=== PATIENT | male | born 1995 | race Two or more races ===

== ENCOUNTER 2024-04-19 21:04 | Emergency (ER) | payer MEDICARE ==
[~2024-04-19] VITALS: Ht 180.3 cm; Wt 66.2 kg
[2024-04-19] MEDS ORDERED: levETIRAcetam 500 MG/5 ML VIAL IV ONE (21:35)
[2024-04-19] MEDS: levETIRAcetam IV 500 MG in IV DEXTROSE 5% 100 ML IV ONE (21:40)
[2024-04-19 21:42] LABS: BASOPHILS % (AUTO) 0.4 % (0.0-2.0); HEMATOCRIT 41.8 % (36.7-47.1); HEMOGLOBIN 14.2 g/dL (12.5-16.3); LYMPHOCYTES # (AUTO) 2.4 K/uL (0.8-4.8); LYMPHOCYTES % (AUTO) 32.3 % (20.5-51.5); MEAN CORPUSCULAR HEMOGLOBIN 29.8 uug (23.8-33.4); MEAN CORPUSCULAR HGB CONC 34 g/dL (32.5-36.3); MEAN CORPUSCULAR VOLUME 87.5 fL (73.0-96.2); MONOCYTES # (AUTO) 0.5 K/uL (0.1-1.30); MONOCYTES % (AUTO) 6.3 % (0.0-11.0); NEUTROPHILS # (AUTO) 4.6 K/uL (1.8-8.9); PLATELET COUNT (AUTO) 214 K/uL (152-348); RED BLOOD CELL COUNT(AUTO) 4.78 MIL/uL (4.06-5.63); RED CELL DISTRIBUTION WIDTH 13.8 % (12.1-16.2); WHITE BLOOD COUNT (AUTO) 7.5 K/uL (3.6-10.2)
[2024-04-19 21:46] LABS: DIFFERENTIAL COMMENT 1
[2024-04-19 21:57] LABS: ETHANOL < 3 MG/DL (0-10)
[2024-04-19 21:58] LABS: ALANINE AMINOTRANSFERASE 20 U/L (16-63); ALBUMIN 4.1 g/dL (3.4-5.0); ALKALINE PHOSPHATASE 83 U/L (50-136); ASPARTATE AMINOTRANSFERASE 16 U/L (15-37); BILIRUBIN,DIRECT 0.3 mg/dL (0.0-0.2); BILIRUBIN,TOTAL 1.2 mg/dL (0.2-1.0); CARBON DIOXIDE 30 mmol/L (21-32); CHLORIDE 103 mmol/L (98-107); CREATININE 0.9 mg/dL (0.6-1.3); GLUCOSE 112 mg/dL (74-106); POTASSIUM 3.8 mmol/L (3.5-5.1); SODIUM SERUM 142 mmol/L (136-145); TOTAL PROTEIN, SERUM 7.5 g/dL (6.4-8.2); UREA NITROGEN, BLOOD 18 mg/dL (7-18)
[2024-04-19 22:53] LABS: *AMPHETAMINE, URINE NEGATIVE (NEGATIVE); *BARBITURATE, URINE NEGATIVE (NEGATIVE); *BENZODIAZEPINE, URINE NEGATIVE (NEGATIVE); *CANNABINOID, URINE POSITIVE (NEGATIVE); *COCCAINE, URINE NEGATIVE (NEGATIVE); *OPIATE, URINE NEGATIVE (NEGATIVE); *PHENCYCLIDINE SCREEN,URINE NEGATIVE (NEGATIVE); FENTANYL, URINE NEGATIVE (NEGATIVE)
[2024-04-19] MEDS ORDERED: LEVE500T9 PO (23:57)
[2024-04-19] MEDS ORDERED: levETIRAcetam 250 MG TABLET ONE (23:59)
[2024-04-20] MEDS: levETIRAcetam 250 MG TABLET PO ONE (00:07)
[2024-04-20 00:08] VITALS: BP 102/63; O2SAT 98
== END 2024-04-20 00:08 | disposition home or self-care (01) ==
LOC: ER 21:06
DX: R56.9 Unspecified convulsions (principal); R51.9 Headache, unspecified; Z79.899 Other long term (current) drug therapy
CPT/HCPCS: 80076; 80048; 85025; 36415; 70450; 93005; 99285; 96365; 83605; 80320; 80307; J1953 ×2; A4606; A4663; G0480